=== PATIENT | female | born 1995 | race Caucasian/White ===

== ENCOUNTER 2016-12-17 20:49 | Emergency (ER) | payer OTHER ==
[~2016-12-17] VITALS: Ht 162.6 cm; Wt 68.0 kg
[2016-12-17 20:58] VITALS: BP 109/64; PULSE 88; RESP 16; TEMP 98.8; O2SAT 98
--- NOTE | 2016-12-17 21:26 | PD ---
HPI Chief Complaint: Psychiatric Symptoms Time Seen by Provider: 21:21 Travel History International Travel<30 days: No Contact w/Intl Traveler<30days: No Traveled to known affect area: No History of Present Illness HPI 21-year-old white female presents to emergency department under Mckenna act by PD. The patient had performed cutting. She states that she had been diagnosed at [facility] with bipolar but does not want to take any medications. She also has a history of cutting in the past. She states she was upset with her boyfriend and cut herself. She does not have any suicidal or homicidal ideation. She merely was cutting to relieve stress. According to the Mckenna act the patient had placed electrical cord over a rafter in the garage in preparation to hang herself. She has not had a tetanus shot over 5 years. She denies any medical complaints. She denies alcohol, drugs and tobacco. Denies . PFSH Past Medical History Narrative Medical bIPOLAR, cutting Bipolar Disorder: Yes Depression: Yes Tetanus Vaccination: > 5 Years Influenza Vaccination: No ?: Not LMP: 11/21/16 Past Surgical History Surgical History: No Previous Surgery Social History Alcohol Use: No Tobacco Use: No Substance Use: No Allergies-Medications (Allergen,Severity, Reaction): Coded Allergies: No Known Allergies (Unverified , 12/17/16) Reported Meds & Prescriptions Reported Meds & Active Scripts Active No Active Prescriptions or Reported Medications Review of Systems Except as stated in HPI: all other systems reviewed are Neg Physical Exam Narrative GENERAL: Well-nourished, well-developed patient. SKIN: Warm and dry. Patient has old scars from cutting on her right proximal thigh as well as her upper extremities. She has a new superficial laceration from cutting to her left forearm. This is just into the subcutaneous tissues. Sutures are not indicated. Laceration measures 3 cm. HEAD: Normocephalic and atraumatic. EYES: No scleral icterus. No injection or drainage. ENT: No nasal drainage noted. Mucous membranes pink. Airway patent. NECK: Supple, trachea midline. Moves head freely without obvious discomfort. CARDIOVASCULAR: Regular rate and rhythm without murmurs, gallops, or rubs. RESPIRATORY: Breath sounds equal bilaterally. No accessory muscle use. GASTROINTESTINAL: Abdomen soft, non-tender, nondistended. EXTREMITIES: No cyanosis or edema. BACK: Nontender without obvious deformity. No CVA tenderness. NEURO: Patient is alert and oriented. no sensorimotor deficits. Nonfocal. Normal speech. PSYCH: No delusions. No auditory or visual hallucinations. Data Data Last Documented VS Vital Signs Date Time Temp Pulse Resp B/P Pulse Ox O2 Delivery O2 Flow Rate FiO2 12/17/16 20:58 98.8 88 16 109/64 98 Orders Tetanus/Diphtheria Tox Adult (Tetanus/Di (12/17/16 21:30) Complete Blood Count With Diff (12/17/16 21:20) Comprehensive Metabolic Panel (12/17/16 21:20) Ed Urine Pregnancytest Poc (12/17/16 21:20) Psych Screen (12/17/16 21:20) Drug Screen, Random Urine (12/17/16 21:20) Alcohol (Ethanol) (12/17/16 21:20) Salicylates (Aspirin) (12/17/16 21:20) Tylenol (Acetaminophen) (12/17/16 21:20) Labs Laboratory Tests Test 12/17/16 21:15 White Blood Count 12.0 TH/MM3 Red Blood Count 4.76 MIL/MM3 Hemoglobin 12.4 GM/DL Hematocrit 38.8 % Mean Corpuscular Volume 81.6 FL Mean Corpuscular Hemoglobin 26.1 PG Mean Corpuscular Hemoglobin 32.0 % Concent Red Cell Distribution Width 14.4 % Platelet Count 265 TH/MM3 Mean Platelet Volume 9.3 FL Neutrophils (%) (Auto) 82.4 % Lymphocytes (%) (Auto) 10.8 % Monocytes (%) (Auto) 6.3 % Eosinophils (%) (Auto) 0.4 % Basophils (%) (Auto) 0.1 % Neutrophils # (Auto) 9.9 TH/MM3 Lymphocytes # (Auto) 1.3 TH/MM3 Monocytes # (Auto) 0.8 TH/MM3 Eosinophils # (Auto) 0.0 TH/MM3 Basophils # (Auto) 0.0 TH/MM3 CBC Comment DIFF FINAL Differential Comment Sodium Level 140 MEQ/L Potassium Level 3.8 MEQ/L Chloride Level 106 MEQ/L Carbon Dioxide Level 24.8 MEQ/L Anion Gap 9 MEQ/L Blood Urea Nitrogen 14 MG/DL Creatinine 0.89 MG/DL Estimat Glomerular Filtration 80 ML/MIN Rate Random Glucose 91 MG/DL Calcium Level 8.7 MG/DL Total Bilirubin 0.3 MG/DL Aspartate Amino Transf 15 U/L (AST/SGOT) Alanine Aminotransferase 26 U/L (ALT/SGPT) Alkaline Phosphatase 69 U/L Total Protein 7.6 GM/DL Albumin 4.0 GM/DL Salicylates Level LESS THAN 1.7 MG/DL Urine Opiates Screen NEG Acetaminophen Level LESS THAN 2.0 MCG/ML Urine Barbiturates Screen NEG Urine Amphetamines Screen NEG Urine Benzodiazepines Screen NEG Urine Cocaine Screen NEG Urine Cannabinoids Screen NEG Ethyl Alcohol Level LESS THAN 3 MG/DL MDM Medical Decision Making Medical Screen Exam Complete: Yes Emergency Medical Condition: Yes Medical Record Reviewed: Yes Interpretation(s) Laboratory Tests Test 12/17/16 21:15 White Blood Count 12.0 TH/MM3 Red Blood Count 4.76 MIL/MM3 Hemoglobin 12.4 GM/DL Hematocrit 38.8 % Mean Corpuscular Volume 81.6 FL Mean Corpuscular Hemoglobin 26.1 PG Mean Corpuscular Hemoglobin 32.0 % Concent Red Cell Distribution Width 14.4 % Platelet Count 265 TH/MM3 Mean Platelet Volume 9.3 FL Neutrophils (%) (Auto) 82.4 % Lymphocytes (%) (Auto) 10.8 % Monocytes (%) (Auto) 6.3 % Eosinophils (%) (Auto) 0.4 % Basophils (%) (Auto) 0.1 % Neutrophils # (Auto) 9.9 TH/MM3 Lymphocytes # (Auto) 1.3 TH/MM3 Monocytes # (Auto) 0.8 TH/MM3 Eosinophils # (Auto) 0.0 TH/MM3 Basophils # (Auto) 0.0 TH/MM3 CBC Comment DIFF FINAL Differential Comment Sodium Level 140 MEQ/L Potassium Level 3.8 MEQ/L Chloride Level 106 MEQ/L Carbon Dioxide Level 24.8 MEQ/L Anion Gap 9 MEQ/L Blood Urea Nitrogen 14 MG/DL Creatinine 0.89 MG/DL Estimat Glomerular Filtration 80 ML/MIN Rate Random Glucose 91 MG/DL Calcium Level 8.7 MG/DL Total Bilirubin 0.3 MG/DL Aspartate Amino Transf 15 U/L (AST/SGOT) Alanine Aminotransferase 26 U/L (ALT/SGPT) Alkaline Phosphatase 69 U/L Total Protein 7.6 GM/DL Albumin 4.0 GM/DL Salicylates Level LESS THAN 1.7 MG/DL Urine Opiates Screen NEG Acetaminophen Level LESS THAN 2.0 MCG/ML Urine Barbiturates Screen NEG Urine Amphetamines Screen NEG Urine Benzodiazepines Screen NEG Urine Cocaine Screen NEG Urine Cannabinoids Screen NEG Ethyl Alcohol Level LESS THAN 3 MG/DL Differential Diagnosis MDM: High Differential diagnoses: Schizophrenia, schizoaffective disorder, bipolar, anxiety, depression, adjustment reaction, mood disorder NOS, ODD, depressive disorder NOS, dementia, dementia with agitation, psychosis NOS, substance induced mood disorder, intermittent explosive disorder, Asperger syndrome, infection,electrolyte abnormality, malingering. Narrative Course Mental health screening discussed with the patient. Psychiatric screen ordered. Patient's tetanus status updated. Her wound is cleansed and Steri-Stripped by the nursing staff. The patient is medically cleared. This is bipolar, cutting Diagnosis Primary Impression: bipolar Additional Impression: cutting Scripts No Active Prescriptions or Reported Meds Condition: Stable Calvin Funes Dec 17, 2016 21:26
[2016-12-17] MEDS ORDERED: TETANUS/DIPHTHERIA TOXOID ADULT 0.5 ML VIAL IM ONE (21:30)
[2016-12-17 21:55] LABS: AUTOMATED NEUTROPHIL # 9.9 TH/MM3 (1.8-7.7); BASOPHIL % 0.1 % (0.0-2.0); EOSINOPHIL % 0.4 % (0.0-4.0); HEMATOCRIT 38.8 % (35.0-46.0); HEMO FLAGS DIFF FINAL; LYMPH % 10.8 % (9.0-44.0); LYMPHOCYTE # 1.3 TH/MM3 (1.0-4.8); MEAN CELL VOLUME 81.6 FL (80.0-100.0); MEAN CORPUSCULAR HEMOGLOBIN 26.1 PG (27.0-34.0); MONO % 6.3 % (0.0-8.0); NEUT % 82.4 % (16.0-70.0); PLATELET COUNT 265 TH/MM3 (150-450); RED BLOOD COUNT 4.76 MIL/MM3 (4.00-5.30); RED CELL DISTRIBUTION WIDTH 14.4 % (11.6-17.2)
[2016-12-17 22:14] LABS: AMPHETAMINE, URINE NEG (NEG); BARBITURATES, URINE NEG (NEG); COCAINE, URINE NEG (NEG)
[2016-12-17 22:19] LABS: ANION GAP 9 MEQ/L (5-15)
[2016-12-17 22:22] LABS: ACETAMINOPHEN LESS THAN 2.0 MCG/ML (10.0-30.0); ALKALINE PHOSPHATASE 69 U/L (45-117); ALT (GPT) 26 U/L (10-53); AST (GOT) 15 U/L (15-37); BICARBONATE 24.8 MEQ/L (21.0-32.0); BLOOD UREA NITROGEN 14 MG/DL (7-18); CHLORIDE 106 MEQ/L (98-107); GLOMERULAR FILTRATION RATE 80 ML/MIN (>89); POTASSIUM 3.8 MEQ/L (3.5-5.1); SODIUM (NA) 140 MEQ/L (136-145); TOTAL BILIRUBIN ADULT 0.3 MG/DL (0.2-1.0)
[2016-12-18 01:54] VITALS: BP 123/66; PULSE 78; RESP 18
[2016-12-18 06:03] VITALS: BP 96/54; PULSE 71; RESP 18
--- NOTE | 2016-12-18 08:45 | PD ---
History of Present Illness Chief Complaint: Psychiatric Symptoms Time Seen by Provider: 08:30 Travel History International Travel<30 Days: No Contact w/Intl Traveler<30days: No Known affected area: No Legal Status Legal Status: Mckenna Act Mckenna Act Signed By: Gogo Young History of Present Illness: History of Present Illness 21-year-old white female with no previous psychiatric history who presents to emergency department under Mckenna act initiated by PD. According to the BA the police were called to her home in response to a disturbance with her boyfriend. Raya has been upset over family issues that her boyfriend does not provide enough attention to her. Raya used a knife to cut herself. She utilized an extension cord and wrapped it around a rafter in her garage in an attempt to hang herself. The patient was seen and evaluated at [facility] 2 days ago and was released with appointment for outpatient care on Thursday December 22, 2016 Seen. Chart reviewed. Case discussed with nurses in J pod. No previous contact with [facility] psychiatry department. Patient is alert and oriented female that appears stated age. Her speech and affect are appropriate. There is no psychosis and no katty. Not significantly depressed. She reports that she has been having family issues and wanted her boyfriend to spend some time with her and talk with her. He decided to go out instead. She states that her cutting her arm is a behavior that she engages in to release stress. She denies that she had any intent ion of harming herself but that she just wanted to get her boyfriend's attention. She states that she has 2 small children and would never hurt herself or her children. She is planning ion attending the appointment scheduled for her at [facility] on Sunday. . Telephone call with patient's verbal consent to her boyfriend to obtain collateral information at [phone]. Telephone call at [phone]. He reports that for the past couple of days she has been having " issues" and was just discharged from [facility] yesterday. Telephone call at 3: 00pm to her boyfriend as he has not returned my call since this morning. I informed him that the patient will be going to his aunt's house to stay with her for a few days until she is seen at [facility]. PFSH Past Medical History Bipolar Disorder: Yes Depression: Yes Tetanus Vaccination: > 5 Years Influenza Vaccination: No ?: Not LMP: 11/21/16 Past Surgical History Surgical History: No Previous Surgery Psychiatric History Psychiatric History Hx Psychiatric Treatment: HX OF DEPRESSION History of Inpatient Treatment: No (evakluated at [facility] overnight and released.) Social History Patient lives with her boyfriend. they have 2 children ages 5 months and 2 years. She works at [employer]. Hx Alcohol Use: No Hx Tobacco Use: No Hx Substance Use: Yes Substance Use Type: Alcohol, Marijuana Hx of Substance Use Treatment: No Family Psychiatric History Mother w hx of bipolar disorder Allergies-Medications (Allergen,Severity, Reaction): Coded Allergies: No Known Allergies (Unverified , 12/17/16) Reported Meds & Prescriptions Reported Meds & Active Scripts Active No Active Prescriptions or Reported Medications Review of Systems Except as stated in HPI: all other systems reviewed are Neg Exam Alert: Yes [place]: Person (ox4) Mood: Calm Affect: Appropriate, Euthymic Speech: Clear, Logical Eye Contact: Normal Memory Intact: Comment (no impairmetn) Hallucinations: Other (negative) Delusions: No Suicidal: Ideation (deneis any) Homicidal: Ideation (deneis any) Insight/Judgement Fair ,not impaired. MDM Medical Decision Making Medical Record Reviewed: Yes Assessment/Plan 21 year old female with no previous psychiatric history who is under a BA. Patient did not make any attempts at harming herself. She staes that she was trying to get her boyfriend to pay attention to her and that they have been arguing. She denies any suicidal ideation, intent or plan. She has not demonstrated any suicidality here in J pod. Has adequate protective factors including her children. She is future oriented. She has contacted her aunt and will be staying with her until her appointment at [facility]. Staff have spoken with her aunt and confirmed this plan. Lift BA. Orders Tetanus/Diphtheria Tox Adult (Tetanus/Di (12/17/16 21:30) Complete Blood Count With Diff (12/17/16 21:20) Comprehensive Metabolic Panel (12/17/16 21:20) Ed Urine Pregnancytest Poc (12/17/16 21:20) Psych Screen (12/17/16 21:20) Drug Screen, Random Urine (12/17/16 21:20) Alcohol (Ethanol) (12/17/16 21:20) Salicylates (Aspirin) (12/17/16 21:20) Tylenol (Acetaminophen) (12/17/16 21:20) Diet Regular Basic (12/18/16 Breakfast) Results Vital Signs Date Time Temp Pulse Resp B/P Pulse Ox O2 Delivery O2 Flow Rate FiO2 12/18/16 06:03 71 18 96/54 12/18/16 01:54 78 18 123/66 12/17/16 20:58 98.8 88 16 109/64 98 Laboratory Tests Test 12/17/16 21:15 White Blood Count 12.0 Red Blood Count 4.76 Hemoglobin 12.4 Hematocrit 38.8 Mean Corpuscular Volume 81.6 Mean Corpuscular Hemoglobin 26.1 Mean Corpuscular Hemoglobin 32.0 Concent Red Cell Distribution Width 14.4 Platelet Count 265 Mean Platelet Volume 9.3 Neutrophils (%) (Auto) 82.4 Lymphocytes (%) (Auto) 10.8 Monocytes (%) (Auto) 6.3 Eosinophils (%) (Auto) 0.4 Basophils (%) (Auto) 0.1 Neutrophils # (Auto) 9.9 Lymphocytes # (Auto) 1.3 Monocytes # (Auto) 0.8 Eosinophils # (Auto) 0.0 Basophils # (Auto) 0.0 CBC Comment DIFF FINAL Differential Comment Sodium Level 140 Potassium Level 3.8 Chloride Level 106 Carbon Dioxide Level 24.8 Anion Gap 9 Blood Urea Nitrogen 14 Creatinine 0.89 Estimat Glomerular Filtration 80 Rate Random Glucose 91 Calcium Level 8.7 Total Bilirubin 0.3 Aspartate Amino Transf 15 (AST/SGOT) Alanine Aminotransferase 26 (ALT/SGPT) Alkaline Phosphatase 69 Total Protein 7.6 Albumin 4.0 Salicylates Level LESS THAN 1.7 Urine Opiates Screen NEG Acetaminophen Level LESS THAN 2.0 Urine Barbiturates Screen NEG Urine Amphetamines Screen NEG Urine Benzodiazepines Screen NEG Urine Cocaine Screen NEG Urine Cannabinoids Screen NEG Ethyl Alcohol Level LESS THAN 3 Diagnosis Primary Impression: Adjustment disorder with mixed disturbance of emotions and conduct Additional Impression: adjustmetn disorder Psychiatrically Cleared: Yes Med/ Other Pt Specific Info: No Meds Exist/No RX given Prescriptions No Active Prescriptions or Reported Meds Disposition: 01 DISCHARGE HOME Condition: Stable Problem Qualifiers Coretta Hancock Dec 18, 2016 08:45
[2016-12-18 11:19] VITALS: BP 129/62; PULSE 107; RESP 17; O2SAT 95
[2016-12-18 15:00] VITALS: BP 113/65; PULSE 96; RESP 16; TEMP 98.2; O2SAT 100
== END 2016-12-18 18:34 | disposition home or self-care (01) ==
LOC: NEPD 20:49 → NEPJ 12-18 18:34
DX: S51.812A Laceration without foreign body of left forearm, initial encounter (principal); F31.9 Bipolar disorder, unspecified; X78.1XXA Intentional self-harm by knife, initial encounter; Z23 Encounter for immunization
CPT/HCPCS: 80053; 80307; 84703; 85025; 90471; 90714